=== PATIENT | female | born 1970 | race Caucasian/White ===

== ENCOUNTER → 2022-08-10 | Day surgery (SDC) | payer OTHER | LOC: CSHMAMMO 07:45 | PROVIDERS: ATTEND Student in an Organized Health Care Education/Training Program | PROC: [UNRECOGNIZED PROCEDURE] (principal; 2022-08-10) | DX: N62 Hypertrophy of breast (principal); R92.1 Mammographic calcification found on diagnostic imaging of breast; Z88.6 Allergy status to analgesic agent; Z91.040 Latex allergy status; Z88.8 Allergy status to other drugs, medicaments and biological substances | CPT/HCPCS: 19081; 76098; 88305 ==